=== PATIENT | female | born 2000 | race Caucasian/White ===

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

== ENCOUNTER 2020-08-21 11:36 | Emergency (ER) | payer OTHER ==
[~2020-08-21] VITALS: Ht 162.6 cm; Wt 97.0 kg
[~2020-08-21 11:36] MED LIST: CETI10TA; FLUTISP; JULE1TAB
[2020-08-21] MEDS ORDERED: ONDANSETRON 4 MG ORAL DISINTEGRATING TAB PO ONE (12:25)
[2020-08-21] MEDS ORDERED: METOCLOPRAMIDE INJ 10MG/2ML VIAL (J2765 PER 1) IV ONE (12:50)
[2020-08-21] MEDS ORDERED: NS 1,000 ML IV ONE (12:50)
[2020-08-21] MEDS ORDERED: ONDA4TAB6 PO (14:28)
[2020-08-21 14:37] VITALS: BP 149/83
== END 2020-08-21 14:36 | disposition home or self-care (01) ==
LOC: M ED 11:36
DX: K52.9 Noninfective gastroenteritis and colitis, unspecified (principal); Z79.3 Long term (current) use of hormonal contraceptives
CPT/HCPCS: 80047; 84702; 96361; 96374; 99284; J2765; Q0162

== ENCOUNTER → 2024-04-03 | Outpatient (REF) ==
[~2024-04-03] MED LIST changes: +ONDA-282 PO
== END ==
LOC: M EMP 10:44
PROVIDERS: ATTEND Family Medicine
DX: Z11.52 Encounter for screening for COVID-19 (principal)

== ENCOUNTER 2024-05-29 18:33 | Emergency (ER) | payer OTHER, BC ==
[~2024-05-29] VITALS: Ht 160 cm; Wt 111.6 kg
[2024-05-29 18:39] VITALS: BP 139/87; TEMP 97.8; O2SAT 98
[2024-05-29] MEDS ORDERED: IBUP200C28 PO (18:41)
[2024-05-29] MEDS ORDERED: ACE65ERTAB PO (18:41)
[2024-05-29 19:09] LABS: BASO % 0.5 % (0.0-1.0); EOS # 0.1 10^3/uL (0.0-0.5); EOS % 1.6 % (0.0-3.0); HEMATOCRIT 40.3 % (36.0-47.0); HEMOGLOBIN 12.8 g/dl (12.0-15.5); LYMPH # 3.1 10^3/uL (1.5-5.0); LYMPH % 40.4 % (24.0-44.0); MEAN CORPUSCULAR HEMOGLOBIN 26.3 pg (27.0-33.0); MEAN CORPUSCULAR HGB CONC 31.8 g/dl (32.0-36.5); MEAN CORPUSCULAR VOLUME 82.9 fl (80.0-96.0); MONO # 0.7 10^3/uL (0.0-0.8); MONO % 9.5 % (2.0-8.0); NEUTROPHILS # 3.7 10^3/uL (1.5-8.5); NEUTROPHILS % 47.7 % (36.0-66.0); PLATELET COUNT, AUTOMATED 321 10^3/uL (150-450); RED BLOOD COUNT 4.86 10^6/uL (4.00-5.40); WHITE BLOOD COUNT 7.7 10^3/uL (4.0-10.0)
[2024-05-29 19:40] LABS: ALBUMIN 3.8 G/DL (3.2-5.2); ALKALINE PHOSPHATASE 73 U/L (35-104); ALT/SGPT 37 U/L (7.0-40); AST/SGOT 16 U/L (<34); BILIRUBIN,TOTAL 0.5 MG/DL (0.3-1.2); BLOOD UREA NITROGEN 12 MG/DL (9-23); CALCIUM LEVEL 8.7 MG/DL (8.5-10.1); CARBON DIOXIDE LEVEL 24 MMOL/L (20-31); CHLORIDE LEVEL 109 MMOL/L (98-107); CREATININE FOR GFR 0.56 MG/DL (0.55-1.30); GLOMERULAR FILTRATION RATE > 60.0 (>60); GLUCOSE, FASTING 95 MG/DL (60-100); POTASSIUM SERUM 4.1 MMOL/L (3.5-5.1); SODIUM LEVEL 144 MMOL/L (136-145); TOTAL PROTEIN 7.3 G/DL (5.7-8.2)
[2024-05-29 19:48] LABS: HEPATITIS B SURFACE ANTIBODY POSITIVE (POSITIVE)
[2024-05-29 19:59] LABS: HCG, SERUM QUALITATIVE NEGATIVE (NEGATIVE); HEPATITIS B SURFACE ANTIGEN NEGATIVE (NEGATIVE)
[2024-05-29 20:12] LABS: HIV SCREEN CENTAUR EXPOSED NEGATIVE (NEGATIVE)
== END 2024-05-29 19:41 | disposition home or self-care (01) ==
LOC: M ED 18:33
DX: Z77.21 Contact with and (suspected) exposure to potentially hazardous body fluids (principal); W46.0XXA Contact with hypodermic needle, initial encounter; Z79.1 Long term (current) use of non-steroidal anti-inflammatories (NSAID); Z79.3 Long term (current) use of hormonal contraceptives

== ENCOUNTER → 2024-06-17 | Outpatient (REF) ==
[~2024-06-17] MED LIST changes: +ACE65ERTAB PO; +IBUP200C28 PO
== END ==
LOC: M EMP 13:24
PROVIDERS: ATTEND Family Medicine
DX: Z11.52 Encounter for screening for COVID-19 (principal)

== ENCOUNTER → 2024-06-17 | Outpatient (REF) | payer OTHER, BC | LOC: M LAB REF 17:36 | PROVIDERS: ATTEND Nurse Practitioner Family | DX: J06.9 Acute upper respiratory infection, unspecified (principal); Z20.828 Contact with and (suspected) exposure to other viral communicable diseases ==

== ENCOUNTER → 2024-11-28 | Outpatient (CLI) | payer OTHER, BC ==
[~2024-11-28] MED LIST changes: -ACE65ERTAB PO; +ACET-1593 PO
== END ==
LOC: M WUC 12:47
PROVIDERS: ATTEND Physician Assistant
DX: M25.561 Pain in right knee (principal)